=== PATIENT | male | born 1975 | race Caucasian/White ===

== ENCOUNTER 2016-06-06 10:54 | Emergency (ER) | payer OTHER ==
[~2016-06-06] VITALS: Ht 180.3 cm; Wt 127.9 kg
[2016-06-06 10:57] VITALS: BP 132/89
[2016-06-06] MEDS ORDERED: LORazepam 1MG TABLET ONE (11:55)
[2016-06-06] MEDS ORDERED: KETOROLAC 30 MG/1 ML ONE (11:56)
[2016-06-06] MEDS ORDERED: ONDANSETRON ODT 4 MG ONE (11:56)
[2016-06-06] MEDS ORDERED: LORazepam 1MG TABLET PO ONE (12:00)
[2016-06-06] MEDS ORDERED: KETOROLAC 60 MG/2 ML IM ONE (12:00)
[2016-06-06] MEDS ORDERED: ONDANSETRON ODT 4 MG PO ONE (12:00)
== END 2016-06-06 13:11 | disposition home or self-care (01) ==
LOC: ED 13:05
DX: F41.9 Anxiety disorder, unspecified (principal); G43.909 Migraine, unspecified, not intractable, without status migrainosus
CPT/HCPCS: 96372; 99283; J1885; Q0162

== ENCOUNTER 2020-07-14 11:40 | Emergency (ER) | payer BC, OTHER ==
[~2020-07-14] VITALS: Ht 180.3 cm; Wt 133.0 kg
[2020-07-14] MEDS ORDERED: DEXAMETHASONE 4 MG/ML, 1ML ONE (12:23)
[2020-07-14] MEDS ORDERED: KETOROLAC 30 MG/1 ML ONE (12:23)
[2020-07-14] MEDS ORDERED: METOCLOPRAMIDE 5 MG/ML, 2ML ONE (12:23)
[2020-07-14] MEDS ORDERED: DIPHENHYDRAMINE 50 MG/ML, 1ML ONE (12:25)
[2020-07-14] MEDS ORDERED: DEXAMETHASONE 4 MG/ML, 1ML IVPush ONE (12:30)
[2020-07-14] MEDS ORDERED: DIPHENHYDRAMINE 50 MG/ML, 1ML IVPush ONE (12:30)
[2020-07-14] MEDS ORDERED: SODIUM CHLORIDE 0.9% 1,000ML IVBOLUS ONE (12:30)
[2020-07-14] MEDS ORDERED: KETOROLAC 30 MG/1 ML IVPush ONE (12:30)
[2020-07-14] MEDS ORDERED: METOCLOPRAMIDE 5 MG/ML, 2ML IVPush ONE (12:30)
--- NOTE | 2020-07-14 12:42 | NUR ---
PT STATES HE HAS HAD A AMEZCUA FOR 10 DAYS, FEELS LIKE HIS HEAD IS BEING SQUEEZED. HYPERSENITIVE TO NOISE. MEDICATED NOTED ON MAY WITH FLUID BOLUS INFUSING
--- NOTE | 2020-07-14 12:45 | NUR ---
Report from KATLIN Asif. This RN to assume full care. Pt laying in [facility] cramer.
[2020-07-14 13:40] VITALS: BP 130/90
== END 2020-07-14 13:44 | disposition home or self-care (01) ==
LOC: ED 13:30
DX: G43.019 Migraine without aura, intractable, without status migrainosus (principal); F17.200 Nicotine dependence, unspecified, uncomplicated
CPT/HCPCS: 96361; 96374; 96375; 99284; J1100; J1200; J1885; J2765; J7030

== ENCOUNTER 2020-09-29 17:23 | Emergency (ER) | payer BC ==
[~2020-09-29] VITALS: Ht 180.3 cm; Wt 136.0 kg
[2020-09-29 17:29] VITALS: BP 152/97
[2020-09-29] MEDS ORDERED: DEXAMETHASONE 4 MG TABLET ONE (18:24)
[2020-09-29] MEDS ORDERED: DEXAMETHASONE 4 MG/ML, 5ML ONE (18:27)
[2020-09-29] MEDS ORDERED: DEXAMETHASONE 4 MG/ML, 1ML PO ONE (18:30)
--- NOTE | 2020-09-29 18:49 | NUR ---
REPORT FROM ADRIANA PRINTER MACHINE OF CARE AT THIS TIME
--- NOTE | 2020-09-29 19:46 | NUR ---
Patient/Caregiver given discharge instructions and they have confirmed that they understand the instructions. Patient ambulatory with steady gait.
--- NOTE | 2020-09-30 16:11 | NUR ---
gabriella richardson, or trisha daigle to pick pack worker COVID test results per pt
== END 2020-09-29 19:47 | disposition home or self-care (01) ==
LOC: ED 17:57
DX: U07.1 COVID-19 (principal); B34.9 Viral infection, unspecified; R06.02 Shortness of breath; F17.210 Nicotine dependence, cigarettes, uncomplicated
CPT/HCPCS: 71045; 99284; 99406; J1100; U0003; U0005